=== PATIENT | female | born 1965 | race Hispanic/Latino ===

== ENCOUNTER 2018-03-29 09:55 | Outpatient (CLI) | payer BC | END 2018-03-29 09:56 | disposition home or self-care (01) | LOC: BICRAD 09:55 | PROVIDERS: ATTEND Internal Medicine | DX: R05 Cough (principal) | CPT/HCPCS: 71046 ==

== ENCOUNTER 2018-12-12 11:09 | Outpatient (CLI) | payer BC ==
--- NOTE | 2018-12-12 13:30 | RAD ---
THREE VIEWS OF THE LUMBOSACRAL SPINE: COMPARISON: None. HISTORY: Lifted a bag of dirt last week with low back pain. Evaluate for compression fracture. FINDINGS: Three views of the lumbosacral spine show normal height and alignment of the vertebral bodies and int ervertebral disks without fracture or subluxation. Posterior facet arthrosis is seen in the lower [place]ora mbosacral spine. Small osteophytes are seen throughout the lumbar spine. IMPRESSION: Degenerative changes of the lumbar spine without acute osseous abnormality. POS: [facility]
== END 2018-12-12 11:10 | disposition home or self-care (01) ==
LOC: BICRAD 11:09
PROVIDERS: ATTEND Internal Medicine
DX: M54.5 Low back pain (principal); M47.816 Spondylosis without myelopathy or radiculopathy, lumbar region
CPT/HCPCS: 72100